=== PATIENT | male | born 1940 | race Caucasian/White ===

== ENCOUNTER → 2020-05-21 | Outpatient (CLI) | payer MEDICARE ==
[~2020-05-21] MED LIST: ACET325T26 PO; ASPI81TA45 PO; ATOR40TA78 PO; CARV3.1212 PO; LISI5TAB7 PO; NITR0.4T28 SL; TICA90TA PO
== END | disposition home or self-care (01) ==
LOC: CFH 07:30
PROVIDERS: ATTEND Internal Medicine Cardiovascular Disease
DX: I25.9 Chronic ischemic heart disease, unspecified (principal); I10 Essential (primary) hypertension; I21.3 ST elevation (STEMI) myocardial infarction of unspecified site; Z98.61 Coronary angioplasty status
CPT/HCPCS: 78452; 93017; A9502

== ENCOUNTER 2020-06-02 17:24 | Emergency (ER) | payer MEDICARE ==
[~2020-06-02] VITALS: Ht 180.3 cm; Wt 78.8 kg
[2020-06-02 18:17] LABS: MICROSCOPIC NOT IND
[2020-06-02 18:31] LABS: BASOPHILS % (AUTO) 1 % (0-1); EOSINOPHILS % (AUTO) 0 % (1-7); LYMPHOCYTES % (AUTO) 12 % (22-44); MEAN CORPUSCULAR HEMOGLOBIN 31.1 pg (27.5-34.5); MEAN CORPUSCULAR HGB CONC 32.8 g/dL (33.2-36.2); MEAN PLATELET VOLUME 8.2 fL (7.4-10.4); MONOCYTES % (AUTO) 6 % (2-9); NEUTROPHILS % (AUTO) 81 % (42-75); PLATELET COUNT 164 x10^3/uL (130-400); RED CELL DISTRIBUTION WIDTH 13.3 % (9.4-14.8)
[2020-06-02 18:42] LABS: ALBUMIN 3.6 g/dL (3.4-5.0); ANION GAP 3 mmol/L (5-15); CALCIUM 8.7 mg/dL (8.5-10.1); CHLORIDE 108 mmol/L (98-107)
[2020-06-02 18:47] LABS: ALANINE AMINOTRANSFERASE 29 U/L (12-78); ALKALINE PHOSPHATASE 48 U/L (45-117); BILIRUBIN,TOTAL 0.8 mg/dL (0.2-1.0); CREATININE 0.91 mg/dL (0.7-1.3); TOTAL PROTEIN 6.5 g/dL (6.4-8.2); TROPONIN I < 0.015 ng/mL (0.000-0.045)
[2020-06-02 19:04] LABS: MD NO
[2020-06-02 19:21] VITALS: BP 141/85
== END 2020-06-02 19:23 | disposition home or self-care (01) ==
LOC: ED 18:02
DX: R53.1 Weakness (principal); R50.9 Fever, unspecified; Z20.828 Contact with and (suspected) exposure to other viral communicable diseases; R07.9 Chest pain, unspecified; E11.9 Type 2 diabetes mellitus without complications; Z87.891 Personal history of nicotine dependence
CPT/HCPCS: 36415; 71045; 80053; 81003; 82962; 84484; 85025; 87635; 93005; 99285

== ENCOUNTER 2020-06-14 11:18 | Day surgery (SDC) | payer MEDICARE ==
[~2020-06-14] VITALS: Ht 177.8 cm; Wt 75.0 kg
[2020-06-14] MEDS ORDERED: CARV6.252 PO (11:42)
[2020-06-14] MEDS ORDERED: ROSU20TA2 PO (11:42)
[2020-06-14] MEDS ORDERED: CLOP75TA52 PO (11:42)
[2020-06-14] MEDS ORDERED: NITR2.5C8 PO (11:42)
[2020-06-14] MEDS ORDERED: LISI-170 PO (11:42)
[2020-06-14] MEDS ORDERED: METF500T17 PO (11:42)
[2020-06-14] MEDS ORDERED: ASPI-515 PO (11:42)
[2020-06-14 12:05] LABS: BASOPHILS % (AUTO) 1 % (0-1); EOSINOPHILS % (AUTO) 2 % (1-7); LYMPHOCYTES % (AUTO) 31 % (22-44); MEAN CORPUSCULAR HEMOGLOBIN 31.2 pg (27.5-34.5); MEAN CORPUSCULAR HGB CONC 33.5 g/dL (33.2-36.2); MONOCYTES % (AUTO) 7 % (2-9); NEUTROPHILS % (AUTO) 60 % (42-75); PLATELET COUNT 195 x10^3/uL (130-400)
[2020-06-14 12:08] LABS: MD NO
[2020-06-14 12:14] LABS: ANION GAP 3 mmol/L (5-15); CHLORIDE 112 mmol/L (98-107); CREATININE 0.88 mg/dL (0.7-1.3)
[2020-06-14] MEDS ORDERED: TICAGRELOR 90 MG TABLET ONE (15:03)
[2020-06-14] MEDS ORDERED: FENTANYL PF 100 MCG/2ML ONE (15:03)
[2020-06-14] MEDS ORDERED: VERAPAMIL 2.5 MG/ML, 2ML ONE (15:03)
[2020-06-14] MEDS ORDERED: MIDAZOLAM 1 MG/ML, 5ML ONE (15:03)
[2020-06-14] MEDS ORDERED: BIVALIRUDIN 250 MG ONE (15:04)
[2020-06-14] MEDS ORDERED: HEPARIN 1,000 UNITS/ML, 10ML ONE (15:04)
[2020-06-14] MEDS ORDERED: LIDOCAINE-MPF 1%, 5ML ONE (15:04)
[2020-06-14] MEDS ORDERED: NITROGLYCERIN 30 MCG/ML, 20ML VIAL ONE (15:32)
[2020-06-14] MEDS ORDERED: SODIUM CHLORIDE 0.9% 1,000 ML IV SCH (16:30)
== END 2020-06-14 17:40 | disposition home or self-care (01) ==
LOC: CACL 11:18
PROVIDERS: ATTEND Internal Medicine Cardiovascular Disease
DX: R94.39 Abnormal result of other cardiovascular function study (principal); I25.110 Atherosclerotic heart disease of native coronary artery with unstable angina pectoris; I10 Essential (primary) hypertension; E11.65 Type 2 diabetes mellitus with hyperglycemia; I25.2 Old myocardial infarction; E78.5 Hyperlipidemia, unspecified; G47.30 Sleep apnea, unspecified; F17.210 Nicotine dependence, cigarettes, uncomplicated; Z79.02 Long term (current) use of antithrombotics/antiplatelets; Z79.82 Long term (current) use of aspirin; Z79.84 Long term (current) use of oral hypoglycemic drugs; Z79.899 Other long term (current) drug therapy
CPT/HCPCS: 36415; 80048; 85025; 93458; 93571; 99156; C1769; C1894; J1644; J2250; J3010; Q9967; J0583

== ENCOUNTER → 2020-10-16 | Outpatient (CLI) | payer MEDICARE ==
[~2020-10-16] MED LIST changes: +ASCO500T9 PO; +ASPI-963 PO; +CARV6.252 PO; +CHOL500045 PO; +CLOP75TA52 PO; +LISI-170 PO; +MELA5TAB14 PO; +METF500T17 PO; +NITR2.5C8 PO; +OMNIPAQUE 350 MG/ML, 100ML BOTTLE ONE; +PANT40TA3 PO; +ROSU20TA2 PO; +THIA100T67 PO; +ZINC220C7 PO
[2020-10-16 11:03] LABS: CREATININE 1.02 mg/dL (0.7-1.3)
== END | disposition home or self-care (01) ==
LOC: RAD 10:19
PROVIDERS: ATTEND Otolaryngology
DX: R22.1 Localized swelling, mass and lump, neck (principal)
CPT/HCPCS: 36415; 70491; 82565; Q9967